=== PATIENT | female | born 1970 | race Caucasian/White ===

== ENCOUNTER → 2016-07-02 | Outpatient (CLI) | payer BC ==
[~2016-07-02] MED LIST: IBUP-1050 PO
== END | disposition home or self-care (01) ==
LOC: C.PAPS 11:41
PROVIDERS: ATTEND Obstetrics & Gynecology
DX: Z01.419 Encounter for gynecological examination (general) (routine) without abnormal findings (principal)

== ENCOUNTER → 2016-07-05 | Outpatient (CLI) | payer BC ==
--- NOTE | 2016-07-05 14:39 | DIAGNOSTIC IMAGING REPORT ---
LEFT INGUINAL ULTRASOUND CLINICAL HISTORY: Left inguinal bulge. Assess for hernia. COMPARISON STUDY: None. FINDINGS: Small fat and fluid left inguinal hernia which is partially reducible. The neck of the hernia measures 1.2 cm. The hernia sac measures 3 cm. IMPRESSION: Small partially reducible fat and fluid containing left inguinal hernia. Electronically signed by: Chace Freitas M.D. 07/05/2016 2:37 PM Dictated Date/Time: 07/05/2016 2:36 PM
== END | disposition home or self-care (01) ==
LOC: C.ULTRBC 13:57
PROVIDERS: ATTEND Obstetrics & Gynecology
DX: K40.90 Unilateral inguinal hernia, without obstruction or gangrene, not specified as recurrent (principal)